=== PATIENT | female | born 1990 | race Caucasian/White ===

== ENCOUNTER 2019-12-17 13:41 | Outpatient (REF) | payer BC, SELFPAY ==
[2019-12-17 14:02] LABS: COVID-19 Test Negative (Negative)
== END 2019-12-17 13:42 | disposition home or self-care (01) ==
LOC: HO.LAB 13:41
PROVIDERS: Visit Provider Internal Medicine
DX: Z20.828 Contact with and (suspected) exposure to other viral communicable diseases (principal)
CPT/HCPCS: 87635

== ENCOUNTER 2019-12-24 06:03 | Outpatient (REF) | payer BC, SELFPAY ==
[2019-12-24 06:25] LABS: COVID-19 Test Negative (Negative)
== END 2019-12-24 06:04 | disposition home or self-care (01) ==
LOC: HO.LAB 06:03
PROVIDERS: Visit Provider Internal Medicine
DX: Z20.828 Contact with and (suspected) exposure to other viral communicable diseases (principal)
CPT/HCPCS: 87635

== ENCOUNTER 2019-12-26 07:44 | Outpatient (REF) | payer BC, SELFPAY ==
[2019-12-26 08:16] LABS: COVID-19 Test Negative (Negative)
== END 2019-12-26 07:45 | disposition home or self-care (01) ==
LOC: HO.LAB 07:44
PROVIDERS: Visit Provider Internal Medicine
DX: Z20.828 Contact with and (suspected) exposure to other viral communicable diseases (principal)
CPT/HCPCS: 87635

== ENCOUNTER 2020-01-02 03:33 | Outpatient (REF) | payer BC, SELFPAY ==
[2020-01-02 05:06] LABS: SARS COV2 PCR INHOUSE NEGATIVE (Negative)
== END 2020-01-02 03:34 | disposition home or self-care (01) ==
LOC: HO.LAB 03:33
PROVIDERS: Visit Provider Internal Medicine
DX: Z20.828 Contact with and (suspected) exposure to other viral communicable diseases (principal)
CPT/HCPCS: U0003

== ENCOUNTER 2020-02-19 13:06 | Outpatient (REF) | payer BC, OTHER, SELFPAY ==
[2020-02-19 13:56] LABS: COVID-19 Test Negative (Negative)
== END 2020-02-19 13:07 | disposition home or self-care (01) ==
LOC: HO.EMPCOV 13:06
PROVIDERS: Visit Provider Internal Medicine
DX: Z20.828 Contact with and (suspected) exposure to other viral communicable diseases (principal)
CPT/HCPCS: 87635; C9803

== ENCOUNTER → 2020-04-11 15:47 | Outpatient (BNVA) | payer BC, SELFPAY | PROVIDERS: PCP Internal Medicine; Visit Provider Advanced Practice Midwife ==

== ENCOUNTER 2020-04-12 23:36 | Outpatient (REF) | payer BC, SELFPAY ==
[2020-04-13 01:18] LABS: Imm Gran Abs Auto 0.03 X10*3/uL (0.00-0.03); Imm Gran Pct Auto 0.2 % (0.0-0.4); MANUAL DIFF FLAG SCAN; PLT CLUMP 1; Red Cell Distribution Width 13.4 % (11.0-16.0); SCAN SMEAR FLAG 1
[2020-04-13 01:20] LABS: Basophils Percent Auto 0.3 % (0-2); Eosinophils Absolute Auto 0.2 X10*3/uL (0.0-0.4); Eosinophils Percent Auto 1.2 % (0-4); Hematocrit 39.9 % (37-47); Hemoglobin 12.6 g/dl (12.0-16.0); Lymphocytes Absolute Auto 2.6 X10*3/uL (1.2-4.9); Lymphocytes Percent Auto 20.7 % (20-40); Mean Corpuscular HGB Conc 31.6 g/dl (31.0-35.0); Mean Corpuscular Hemoglobin 27.9 pg (27.0-33.0); Mean Corpuscular Volume 88.3 fL (80-98); Mean Platelet Volume 10.6 fL (9.4-12.3); Monocytes Absolute Auto 0.5 X10*3/uL (0.1-1.2); Monocytes Percent Auto 4.1 % (2-11); Neutrophils Percent Auto 73.5 % (45-73); Platelet Count 278 X10*3/uL (160-400); Red Blood Count 4.52 X10*6/uL (4.20-5.50)
[2020-04-13 01:27] LABS: White Blood Count 12.3 X10*3/uL (4.8-10.8)
[2020-04-13 01:33] LABS: Alanine Aminotransferase 32 U/L (0-31); Albumin Level 4.4 g/dL (3.5-5.0); Alkaline Phosphatase 86 U/L (39-117); Anion Gap 16 (12-20); Aspartate Amino Transferase 20 U/L (5-31); Bilirubin Total 0.4 mg/dL (0.0-1.0); Blood Urea Nitrogen 9 mg/dL (9-16); Calcium 9.1 mg/dL (8.4-10.2); Carbon Dioxide 24 mmol/L (22-29); Chloride 102 mmol/L (96-108); Cholesterol 179 mg/dL; Estimated Glomerular Filt Rate > 60; Glucose Fasting 88 mg/dL (60-99); HDL Cholesterol 31 mg/dL; LDL Cholesterol Calculated 130 mg/dl; Potassium 3.9 mmol/L (3.3-5.1); Sodium 138 mmol/L (135-145); Total Protein 7.9 g/dL (6.5-8.0); Triglycerides 92 mg/dL
[2020-04-13 01:50] LABS: SLIDE REVIEW VERIFIED
[2020-04-17 14:07] LABS: Vitamin D 25-OH, D2 <4 ng/mL; Vitamin D 25-OH, D3 10 ng/mL; Vitamin D 25-OH, Total 10 ng/mL (30-100)
== END 2020-04-12 23:37 | disposition home or self-care (01) ==
LOC: HO.LAB 23:36
PROVIDERS: PCP Internal Medicine; Visit Provider Internal Medicine
DX: E55.9 Vitamin D deficiency, unspecified (principal); E66.01 Morbid (severe) obesity due to excess calories; E78.5 Hyperlipidemia, unspecified; D72.829 Elevated white blood cell count, unspecified
CPT/HCPCS: 36415; 80053; 80061; 82306; 85025

== ENCOUNTER 2020-04-29 08:59 | Outpatient (REF) | payer BC, SELFPAY ==
[2020-04-30 18:07] LABS: C. trachomatis RNA TMA NOT DETECTED (NOT DETECTED); N. gonorrhoeae RNA TMA NOT DETECTED (NOT DETECTED)
== END 2020-04-29 09:00 | disposition home or self-care (01) ==
LOC: HO.LAB 08:59
PROVIDERS: PCP Internal Medicine; Visit Provider Advanced Practice Midwife
DX: Z30.433 Encounter for removal and reinsertion of intrauterine contraceptive device (principal); Z32.02 Encounter for pregnancy test, result negative
CPT/HCPCS: 36415; 58300; 58301; 81025; 87491; 87591; J7298

== ENCOUNTER → 2020-05-27 08:24 | Outpatient (BNVA) | payer BC, SELFPAY | PROVIDERS: PCP Internal Medicine; Visit Provider Obstetrics & Gynecology ==

== ENCOUNTER 2021-03-18 20:56 | Outpatient (REF) | payer BC, SELFPAY ==
[2021-03-18 21:57] LABS: Influenza A PCR NEGATIVE (Negative); Influenza B PCR NEGATIVE (Negative); Resp Syncy Virus RNA Qual PCR NEGATIVE (Negative); SARS COV2 PCR INHOUSE NEGATIVE (Negative)
== END 2021-03-18 20:57 | disposition home or self-care (01) ==
LOC: HO.LAB 20:56
PROVIDERS: PCP Internal Medicine; Visit Provider Internal Medicine
DX: Z20.822 Contact with and (suspected) exposure to COVID-19 (principal); R51.9 Headache, unspecified
CPT/HCPCS: 0241U

== ENCOUNTER 2022-09-06 09:29 | Outpatient (REF) | payer OTHER, SELFPAY | END 2022-09-06 09:30 | disposition home or self-care (01) | LOC: HO.LAB 09:29 | PROVIDERS: PCP Internal Medicine; Visit Provider Nurse Practitioner Family | DX: Z00.00 Encounter for general adult medical examination without abnormal findings (principal) | CPT/HCPCS: 36415; 80053; 80061; 82306; 82607; 82746; 84443; 85025 ==

== ENCOUNTER 2022-09-07 15:45 | Outpatient (REF) | payer OTHER, SELFPAY ==
--- NOTE | ~2022-09-07 | US_ITS ---
EXAMINATION: US THYROID CLINICAL INFORMATION: Nontoxic goiter, unspecified. COMPARISON: None available. TECHNIQUE: Linear transducer grayscale and color Doppler examination with attention to the region of the thyroid. FINDINGS: SIZE: Measurements of the thyroid lobes and nodules are given in sagittal, anteroposterior and transverse dimensions respectively. Right Thyroid Lobe: 5.7 x 1.6 x 1.9 cm, volume 9.1 mL. Parenchyma: The gland echotexture is homogeneous. Thyroid vascularity is normal. Left Thyroid Lobe: 5.4 x 1.0 x 1.9 cm, volume 5.4 mL. Parenchyma: The gland echotexture is homogeneous. Thyroid vascularity is normal. Isthmus: 0.3 cm in maximum AP dimension. Estimated total number of nodules greater than or equal to 1 cm: 0. Upper Marker nodules are described as follows: 1. Location: Left inferior lateral. Size: 0.5 x 0.4 x 0.4 cm, volume 0.05 mL. Nodule characteristics: Composition: Cystic(0). ACR TI-RADS total points: 0 ACR TI-RADS category: 1 2. Location: Left inferior medial. Size: 0.7 x 0.3 x 0.7 cm, volume 0.09 mL. Nodule characteristics: Composition: Cystic(0). ACR TI-RADS total points: 0 ACR TI-RADS category: 1 NODES: Borderline and mildly enlarged cervical nodes measuring up to 2.9 x 1.0 x 1.4 cm on the right and 2.9 x 1.2 x 2.3 cm on the left. US/US thyroid IMPRESSION: Borderline and mildly enlarged cervical nodes the largest on the left measuring 2.9 x 1.2 cm. Recommend clinical correlation and consider further follow up with tissue sampling of the largest node versus imaging follow-up to ensure stability and/or resolution if clinically suspected to be reactive lymphadenopathy. No suspicious thyroid nodule or thyroid nodule warranting follow-up. ACR TI-RADS RECOMMENDATION REFERENCE: Ultrasound-guided fine-needle aspiration, followup ultrasound, no further follow up. * TR1 (0 point) and TR2 (2 points): No FNA or follow up. * TR3 (3 points): FNA if more than or equal to 2.5 cm in maximum dimension, followup ultrasound in 1, 3 and 5 years if 1.5 to 2.4 cm in maximum dimension. * TR4 (4-6 points): FNA if more than or equal to 1.5 cm in maximum dimension, followup ultrasound in 1, 2, 3 and 5 years if 1 to 1.4 cm in maximum dimension. * TR5 (more than or equal to 7 points): FNA if more than or equal to 1 cm in maximum dimension, followup ultrasound every year for 5 years if 0.5 to 0.9 cm in maximum dimension. * TR3, TR4 or TR5 nodules that are below the size threshold for followup receive no follow up.
== END 2022-09-07 15:46 | disposition home or self-care (01) ==
LOC: HO.US 15:45
PROVIDERS: Visit Provider Nurse Practitioner Family
DX: E04.9 Nontoxic goiter, unspecified (principal)
CPT/HCPCS: 76536

== ENCOUNTER 2022-09-19 09:27 | Outpatient (AMB) | payer OTHER, SELFPAY ==
[2022-09-19 09:38] VITALS: BP 130/72; PULSE 71; BMI 42.9
--- NOTE | 2022-09-19 09:38 | MHC.OFFVIS ---
Intake Vital Signs 09/19/22 09:38 Height 5 ft 10 in Weight 299 lb BMI 42.9 BP 130/72 Blood Pressure Location Rt brachial Position Sitting Pulse 71 Intake Visit Reasons: enlarged cervical nodes, possible Bx Intake Note: This patient presents for an assessment for enlarged cervical nodes, possible biopsy. Patient c/o; denies dysphagia, denies pain. Naturopathic Physician Required: No Accompanied by: Self / Same As Patient Allergies vancomycin Allergy (Mild, Verified 09/19/22 09:43) Rash Medication List - Last Reconciled 09/19/22 by John Fortune MD cholecalciferol (vitamin D3) 25 mcg PO DAILY levonorgestrel (Mirena) intrauterine multivitamin 1 tab PO DAILY HPI enlarged cervical nodes, possible Bx HPI Details 32-year-old female referred for enlarged lymph nodes on ultrasound. She had a thyroid ultrasound last month rule out a goiter. This was ordered by her primary care physician. This showed borderline and mildly enlarged cervical lymph nodes, measuring up to 2.9 x 1.0 x 1.4 cm on the right and 2.9 x 1.2 x 2.3 cm on the left. She was therefore referred to me. She otherwise denies any significant lymphadenopathy. She denies any fever, chills or night sweats. She does states she has chronic leukocytosis for over 10 years now. She denies any recent sore throat, oral lesions, dental caries, or ulcers in the mouth. [facility] Medical History (Updated 09/19/22 @ 09:59 by John Fortune MD) Cervical lymphadenopathy Goiter Hypovitaminosis D Leukocytosis Morbid obesity Physical exam Right upper quadrant abdominal pain Surgical History H/O arthroscopy of left knee History of wisdom tooth extraction Family History Father No problems noted. Mother Hypertension Social History Housing: Apartment Alcohol intake: current Alcohol intake frequency: holidays/special occasions only Patient Tobacco Use Status: Never used Tobacco e-Cigarette/Vaping Use: Never Used Second Hand Smoke Exposure: No service: No Current occupational status: employed Current occupational exposures/hazards: No Gender identity: Female Cognitive needs: No Hearing needs: No Vision needs: No Female Reproductive History Menstrual Age of Menarche: 15 Review of Systems Const Denies chills and Denies fever(s) Card Denies chest pain, Denies dyspnea and Denies dyspnea on exertion Resp Denies cough, Denies dyspnea and Denies dyspnea on exertion GI Denies hematochezia and Denies change in bowel habits Denies hematuria Musc Denies back pain and Denies limited range of motion Neuro Denies focal weakness and Denies convulsions Psych Denies depression and Denies mood swings Physical Exam Vital Signs: Last Vital Signs Pulse 71 09/19/22 09:38 BP 130/72 09/19/22 09:38 BMI result Body Mass Index 42.9 Const Other: With obesity General: comfortable and no acute distress Orientation/consciousness: patient oriented x3 Neck Other: No palpable enlarged lymph nodes, thyroid does not appear to be enlarged, nonnodular, no masses in the oral cavity, no ulcers, no dental caries Resp Auscultation: clear to auscultation bilaterally Cardio Rhythm: regular rhythm GI Palpation (GI): Soft to palpation, nontender and no guarding Neuro General: patient oriented x3 Assessment & Plan Assessment & Plan (1) Cervical lymphadenopathy: Code(s): R59.0 - Localized enlarged lymph nodes Plan: She has borderline enlarged cervical lymph nodes as described above on ultrasound. There is palpable lymph node that is significantly enlarged. There are no oral ulcers, or any evidence of any infection or inflammation in the oral cavity. These lymph nodes appear to be reactive. I told her that I would not proceed with any excision or lymph node biopsy at this time. I would however recommend repeating the ultrasound in about 6 months as a follow-up. I emphasized this to her. I did tell her to do self examination of the neck regularly and to come back to the office earlier if she feels any enlarged lymph node She is comfortable with the plan. Coding Level of Care Code New Pt Level 3 (00064) Diagnoses Cervical lymphadenopathy R59.0
== END 2022-09-19 10:03 | disposition home or self-care (01) ==
PROVIDERS: PCP Internal Medicine; Visit Provider Surgery
DX: R59.0 Localized enlarged lymph nodes (principal)
CPT/HCPCS: 99203

== ENCOUNTER → 2022-09-19 09:27 | Outpatient (BNVA) | payer OTHER, SELFPAY | PROVIDERS: PCP Internal Medicine; Visit Provider Surgery ==

== ENCOUNTER 2022-10-10 10:48 | Outpatient (AMB) | payer OTHER, SELFPAY ==
--- NOTE | 2022-10-10 10:49 | A.OFFPC_ITS ---
Vital Signs 10/10/22 10:50 Height 5 ft 10 in Weight 292 lb BMI 41.9 BP 116/72 Blood Pressure Location Lt brachial Position Sitting Pulse 77 Pulse Source Pulse Oximeter Temp Source Skin Pulse Oximetry (%) 99 Oxygen Delivery Method Room Air Intake Visit Reasons: Lump on Right Breast Intake Note: pt states lump on right breast X1 month, pt states tenderness Hand Bunch Maker Required: No Allergies vancomycin Allergy (Mild, Verified 10/10/22 10:58) Rash Medication List - Last Reconciled 10/10/22 by SANDOR Murray cholecalciferol (vitamin D3) 25 mcg PO DAILY levonorgestrel (Mirena) intrauterine multivitamin 1 tab PO DAILY Tobacco use date assessed: 10/10/22 HPI Lump on Right Breast HPI Details Patient is a 32-year-old female who presents today with lump right breast for the past 1 month which is tender. Patient of Dr. Jorge. Patient denies any breast lumps in the past. She denies family history of breast cancer. Reports not having menstruation due to IUD, although reports bloody vaginal discharge 09/01/2022 for 1 day. In addition, patient reports that she pierced her both nipples 8 years ago, she reports that from right nipple piercing areas she did have bloody discharge about 3 weeks ago, now she has mild crusting on 1 of the side of the pierced area on right breast. No fever or chills. [facility] Medical History Cervical lymphadenopathy Goiter Hypovitaminosis D Leukocytosis Morbid obesity Physical exam Right upper quadrant abdominal pain Surgical History H/O arthroscopy of left knee History of wisdom tooth extraction Family History Father No problems noted. Mother Hypertension Social History Housing: Apartment Alcohol intake: current Alcohol intake frequency: holidays/special occasions only Patient Tobacco Use Status: Never used Tobacco e-Cigarette/Vaping Use: Never Used Second Hand Smoke Exposure: No service: No Current occupational status: employed Current occupational exposures/hazards: No Gender identity: Female Cognitive needs: No Hearing needs: No Vision needs: No Female Reproductive History Menstrual Age of Menarche: 15 Questionnaire PHQ-9 Over the last 2 weeks, how often have you been bothered by any of the following problems? 1. Little interest or pleasure in doing things: not at all 2. Feeling down, depressed, or hopeless: not at all 3. Trouble falling or staying asleep, or sleeping too much: not at all 4. Feeling tired or having little energy: not at all 5. Poor appetite or overeating: not at all 6. Feeling bad about yourself - or that you are a failure or have let yourself or your family down: not at all 7. Trouble concentrating on things, such as reading the newspaper or watching television: not at all 8. Moving or speaking so slowly that other people could have noticed. Or the opposite - being so fidgety or restless that you have been moving around a lot more than usual: not at all 9. Thoughts that you would be better off or of hurting yourself in some way : not at all Total score: 0 Depression Screening Interpretation: Negative 35031 - PHQ-9 Billing: Yes Source: Developed by Drs. Marck Kang, Milton Crabtree and colleagues, with an educational shun from [employer]. Thrive Questionnaire Date Thrive assessed: 08/30/22 AUDIT C Alcohol Use Questionnaire (AUDIT-C) 1. How often do you have a drink containing alcohol?: Monthly or less 2. How many drinks containing alcohol do you have on a typical day when you are drinking?: 1 or 2 3. How often do you have six or more drinks on one occasion?: Never Total Score: 1 Score Reviewed/Action Taken: No SAM-7 AMB Questionnaire SAM-7 Date SAM - 7 assessed: 08/30/22 Source: Developed by Drs. Marck Kang, Milton Crabtree and colleagues, with an educational shun from [employer]. Review of Systems Const Denies body aches, Denies chills, Denies fever(s) and Denies headache(s) Eyes Denies change in vision ENT Denies dizziness, Denies otalgia, Denies headache(s), Denies nasal discharge, Denies sinus pain and Denies sore throat Card Denies chest pain, Denies edema, Denies lightheadedness and Denies dyspnea Resp Denies cough, Denies dyspnea and Denies wheezing GI Denies abdominal pain Denies dysuria Musc Denies myalgias Skin/Breast Reports as per HPI and Denies rash Neuro Denies dizziness and Denies headache(s) Aller/Immun Denies wheezing Physical exam (Primary Care) Vital Signs: Last Vital Signs Pulse 77 10/10/22 10:50 BP 116/72 10/10/22 10:50 Pulse Ox 99 10/10/22 10:50 Oxygen Delivery Method Room Air 10/10/22 10:50 BMI result Body Mass Index 41.9 Tobacco/Smoking Status: Tobacco use Status Tobacco use date assessed 10/10/22 10/10/22 10:56 Patient Tobacco Use Status Never used Tobacco 10/10/22 10:56 e-Cigarette/Vaping Use Never Used 10/10/22 10:56 PHQ-9: PHQ-9 Score PHQ-9: Total score 0 10/10/22 10:56 Depression Screening Interpretation: Negative Thrive Assessment: Date of Thrive Assessment Date Thrive assessed 08/30/22 10/10/22 10:56 Const General: cooperative and no acute distress Orientation/consciousness: patient oriented x3 HENMT Head: Yes normocephalic and Yes atraumatic Mouth: oropharynx normal and moist mucous membranes Throat: Yes posterior oropharynx normal Eyes General: appearance normal, both eyes and all related structures Neck Neck: Yes normal visual inspection, Yes full ROM and Yes lymphadenopathy (R>L, followed by General surgery) Chest Breast/axilla inspection: normal inspection of the breasts and normal inspection of the axillae Breast/axilla palpation: normal palpation of the breasts (Left) and normal palpation of the axillae Chest/axillae images: 1. Right breast 09:00 o'clock tenderness to palpation, no palpable lump, no signs of infection noted 2. Right nipple horizontal piercing noted, medial side with very mild crusting, no signs of infection noted, nipple nontender, no need for antibiotic Resp Effort & Inspection: normal respiratory effort and able to speak in complete sentences Auscultation: clear to auscultation bilaterally, no crackles, no rales, no rhonchi and no wheezes Cardio Rate: regular rate Rhythm: regular rhythm Heart sounds: S1 normal heart sound present and S2 normal heart sound present GI Auscultation: normal bowel sounds Skin General skin exam: no rashes or lesions noted Neuro General: patient oriented x3 Gait exam (Neuro): Normal gait present Extrem General: Yes full ROM and No edema Assessment and Plan Assessment & Plan (1) Lump of right breast: Code(s): N63.10 - Unspecified lump in the right breast, unspecified quadrant Plan: Right breast 09:00 o'clock tenderness to palpation, no palpable lump, no signs of infection noted. Will obtain mammogram and ultrasound of right breast. Patient agreed with the plan. Will notify of the results. Orders: Orders US breast RT complete Today N63.10 - Unspecified lump in the right breast, unspecified quadrant MM diagnostic mammo unilat RT Today N63.10 - Unspecified lump in the right breast, unspecified quadrant Coding Level of Care Code Est Pt Level 3 (32779) Diagnoses Lump of right breast N63.10
[2022-10-10 10:50] VITALS: BP 116/72; PULSE 77; O2SAT 99; BMI 41.9
== END 2022-10-10 11:14 | disposition home or self-care (01) ==
PROVIDERS: PCP Internal Medicine; Visit Provider Nurse Practitioner Family
DX: N63.11 Unspecified lump in the right breast, upper outer quadrant (principal)
CPT/HCPCS: 99213

== ENCOUNTER 2022-10-31 12:46 | Outpatient (REF) | payer OTHER, SELFPAY ==
--- NOTE | ~2022-10-31 | MM_ITS ---
EXAMINATION: MM DIAGNOSTIC DIGITAL BREAST TOMOSYNTHESIS, BILATERAL US BREAST LIMITED, BILATERAL MAMMOGRAPHY: CLINICAL INFORMATION: 32-year-old female complaining of right sided palpable abnormality in the approximate 9:00 axis of the right breast, mid to anterior one third, which was marked by the technologist. Patient also complaining of mild tenderness in the 9:00 region. COMPARISON: Mammography: None. Baseline exam. TECHNIQUE: Digital breast tomosynthesis is performed in both the craniocaudal and mediolateral oblique views along with computer-aided detection (CAD). Synthesized 2D images are generated from the tomosynthesis. FINDINGS: There are scattered areas of fibroglandular density (ACR BI-RADS breast composition Category b). In the right breast, there are no suspicious masses, suspicious grouped calcifications, or areas of architectural distortion identified. There is no mammographic abnormality near are subjacent to the marker at the approximate 9:00 axis of the mid to anterior right breast in the region of palpable concern. No abnormality in the 9:00 axis to correlate with breast pain. Within the left breast, there is an 8 mm oval circumscribed isodense mass in the 1-2 o'clock axis, approximately 8 cm from the nipple. This may represent a small cyst or lymph node. This will be evaluated with ultrasound. There is otherwise no suspicious masses, suspicious grouped calcifications, or areas of architectural distortion within the left breast. ULTRASOUND: CLINICAL INFORMATION: Right breast palpable abnormality and tenderness 9:00 axis. Left breast circumscribed 8mm oval isodense mass 1-2 o'clock axis, 8 cm from the nipple. COMPARISON: None TECHNIQUE: Targeted sonographic evaluation of both breasts was performed using a high frequency linear transducer. Attention was paid to the palpable focus of concern with pain in the 9:00 axis of the right breast, and the oval isodense 8 mm mass in the 1-2 o'clock axis of the left breast. Selected archived documentation. FINDINGS: RIGHT BREAST: There is a mixture of fatty and fibroglandular tissue. No suspicious mass is seen. There is no pathologic acoustic shadowing. There is no sonographic correlate to the focus of palpable concern or pain. LEFT BREAST: There is a mixture of fatty and fibroglandular tissue. No suspicious mass is seen. There is no pathologic acoustic shadowing. There is no sonographic correlate identified to the oval 8mm isodense mass. This likely represents a benign lymph node, and 6 month follow-up mammography recommended. MM/MM tomosynthesis diagnostic BI IMPRESSION: There are no suspicious findings for malignancy in either breast. No mammographic or sonographic correlate to the right breast focus of palpable concern and pain in the 8-9 o'clock axis, mid to anterior one third. Recommend clinical management of the patient's symptomatology. Decision to biopsy a palpable focus with no imaging correlation must be made on a clinical basis. Oval isodense 8 mm left breast mass at the 1-2 o'clock axis, 8 cm from the nipple, has no definite ultrasonographic correlate, most likely represents a benign process such as a lymph node or small fibroadenoma. Six-month interval follow-up left breast mammography to include standard 3-D views recommended to ensure stability. Follow-up ultrasound is not suggested unless indicated by the reading radiologist. Findings and recommendations discussed with the patient. OVERALL ASSESSMENT: Mammography: BI-RADS 3 - Probably benign finding(s) - 6 month follow-up suggested Ultrasound: BI-RADS 3 - Probably benign finding(s) - 6 month follow-up suggested RECOMMENDATION: 6 Month F/U This patient's information was entered into a reminder system with a target due date for their next mammogram.
== END 2022-10-31 12:47 | disposition home or self-care (01) ==
LOC: HO.MAMMO 12:46
PROVIDERS: PCP Internal Medicine; Visit Provider Nurse Practitioner Family
DX: N63.15 Unspecified lump in the right breast, overlapping quadrants (principal)
CPT/HCPCS: 76642; 77062; 77066

== ENCOUNTER → 2022-10-31 13:00 | Outpatient (BNV) | payer OTHER, SELFPAY | PROVIDERS: PCP Internal Medicine; Visit Provider Radiology Diagnostic Radiology | DX: N63.11 Unspecified lump in the right breast, upper outer quadrant (principal) | CPT/HCPCS: 76642; 77062; 77066 ==

== ENCOUNTER 2022-12-26 12:46 | Outpatient (REF) | payer OTHER, SELFPAY ==
[2022-12-27 13:39] LABS: BV Int Neg Control Negative (Negative); BV Int Pos Control Positive (Positive)
[2022-12-28 21:13] LABS: HPV mRNA E6/E7 rflx Not Detected (Not Detected)
== END 2022-12-26 12:47 | disposition home or self-care (01) ==
LOC: HO.LNP 12:46
PROVIDERS: PCP Internal Medicine; Visit Provider Advanced Practice Midwife
DX: Z01.419 Encounter for gynecological examination (general) (routine) without abnormal findings (principal); Z11.51 Encounter for screening for human papillomavirus (HPV); Z20.2 Contact with and (suspected) exposure to infections with a predominantly sexual mode of transmission
CPT/HCPCS: 87480; 87510; 87624; 87660; 88142

== ENCOUNTER 2022-12-26 12:46 | Outpatient (AMB) | payer OTHER, SELFPAY ==
--- NOTE | 2022-12-26 12:51 | A.OFFVIS_ITS ---
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 Scribed for EHSAN Koo by Jessi Larsen, medical coder, on 12/26/2022 at 1:47 pm, EST. Video Player Mechanic: Video Player Mechanic Present (Georgette) Allergies vancomycin Allergy (Mild, Verified 12/26/22 12:52) Rash HPI HPI Comments History of Present Illness Details She is a premenopausal woman presenting for annual examination. Doing well with no concerns. She tries to eat healthy and stays active with exercise. She denies vaginal itching and irritation. STI screening offered; she accepts. Denies family history of breast, ovarian or colon cancer. Last pap smear 2018; abnormal at [facility]not found in records today. Colpo 2014 normal since. Last mammogram on 10/31/2022 Confirms facial hair growth. Cycles prior to IUD were excessive cramping and heavy bleeding. Her PCP suggested that she be seen by endocrinology to be done next year. She states next year she will have her A1c taken for possible glucose intolerance. 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 [facility] Medical History Cervical lymphadenopathy Goiter Right upper quadrant abdominal pain Physical exam Leukocytosis Morbid obesity Hypovitaminosis D Surgical History H/O arthroscopy of left knee History of wisdom tooth extraction Family History Father No problems noted. Mother Hypertension Social History Housing: Apartment Alcohol intake: current Alcohol intake frequency: a few times a month Patient Tobacco Use Status: Never used Tobacco e-Cigarette/Vaping Use: Never Used Second Hand Smoke Exposure: No service: No Current occupational status: employed Current occupational exposures/hazards: No Sexual orientation: Straight/Heterosexual Gender identity: Female Cognitive needs: No Hearing needs: No Vision needs: No Female Reproductive History Menstrual Age of Menarche: 15 control method: progestin IUCD (Mirena 04/24) Total pregnancies: 0 Review of Systems Const All systems reviewed & are unremarkable except as noted in HPI and below Physical Exam Vital Signs: Last Vital Signs BP 100/68 12/26/22 12:52 BMI result Body Mass Index 41.3 Const General: cooperative, healthy appearing, no acute distress, well developed and alert Nutritional Appearance: obese Orientation/consciousness: patient oriented x3 HEENT Head: Yes normal to inspection Eyes General: appearance normal, both eyes and all related structures Neck Neck: Yes normal visual inspection Thyroid: Thyroid normal Chest Chest palpation & inspection: normal inspection of the chest Breast/axilla inspection: normal inspection of the breasts (no puckering, dimpling, peau de orange, retraction, discharge, masses) Breast/axilla palpation: normal palpation of the breasts Resp Effort & Inspection: normal respiratory effort GI Inspection: Yes normal to inspection Palpation (GI): Soft to palpation Rectal Exam - Female: deferred General: Yes bladder normal to inspection and Yes bladder normal to palpation External Female Exam: normal external appearance and normal appearance of the urethra Speculum Exam - Vagina: normal appearance of the vagina and normal palpation Speculum Exam - Cervix: normal palpation and Other cervical findings present (IUD stings were normal in length.) Bimanual exam- vagina & uterus: normal bimanual exam, normal palpation, uterine size normal, bladder normal to palpation and normal palpation Bimanual Exam- Adnexa, other: normal adnexae and no masses Skin General skin exam: no rashes or lesions noted Neuro General: patient oriented x3 Cognition (Neuro): normal cognition Extrem General: Yes normal to inspection Psych Attitude: cooperative Thought process: Normal thought process present Assessment & Plan Assessment & Plan (1) Encounter for annual routine gynecological examination: Code(s): Z01.419 - Encounter for gynecological examination (general) (routine) without abnormal findings Plan: The office will send a request for her prior pap smear and Colpo results. BV testing and GC/CT panel today. STD blood work ordered. Await results and treat accordingly. Discussed: Hormone lab work up, however due to her having an IUD in place I educated her this could cause her to have incorrect labs values. She would like to defer at this time, consider waiting for Endocrine workup. Current recommendations for pap smears per ASCCP guidelines. Sign release for pap/colpo bx records. Breast awareness and periodic self breast exams, follow up if any concerns with her breast Maintaining a healthy lifestyle including a well balanced diet and routine exercise. Encouraged condom use for STD and prevention. All of her questions and concerns were addressed to the best of my ability She will return in one year for AG. 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 Orders: Orders CT NG by PCR 12/26/22 Z20.2 - Contact with and (suspected) exposure to infections with a predominantly sexual mode of transmission Pap Smear 12/26/22 Z01.419 - Encounter for gynecological examination (general) (routine) without abnormal findings Hepatitis B Core Antibody 12/26/22 Z20.2 - Contact with and (suspected) exposure to infections with a predominantly sexual mode of transmission HIV Ab/Ag 12/26/22 Z20.2 - Contact with and (suspected) exposure to infections with a predominantly sexual mode of transmission Bacterial Vaginosis Panel 12/26/22 Z20.2 - Contact with and (suspected) exposure to infections with a predominantly sexual mode of transmission Hepatitis C Antibody 12/26/22 Z20.2 - Contact with and (suspected) exposure to infections with a predominantly sexual mode of transmission Syphilis Screen 12/26/22 Z20.2 - Contact with and (suspected) exposure to infections with a predominantly sexual mode of transmission Medications: New valacyclovir (Valtrex) take with onset on of symptoms, take for three days, may repeat dosing per episode prn 500 mg PO BID 30 tabs 1RF Coding Level of Care Code Est Pt Prev Care 18-39y(76403) Diagnoses Encounter for annual routine gynecological examination Z01.419 HSV-1 infection B00.9
[2022-12-26 12:52] VITALS: BP 100/68; BMI 41.3
== END 2022-12-26 13:37 | disposition home or self-care (01) ==
PROVIDERS: PCP Internal Medicine; Visit Provider Advanced Practice Midwife
DX: Z01.419 Encounter for gynecological examination (general) (routine) without abnormal findings (principal); B00.9 Herpesviral infection, unspecified
CPT/HCPCS: 99395

== ENCOUNTER 2022-12-26 13:22 | Outpatient (REF) | payer OTHER, SELFPAY ==
[2022-12-26 18:45] LABS: CT PCR NOT DETECTED (Not Detect.); NG PCR NOT DETECTED (Not Detect.)
[2022-12-27 04:16] LABS: Syphilis Screen Nonreactive (Nonreactive)
[2022-12-27 04:21] LABS: HBc Num1 0.05 S/CO (0.00-0.79); HIV AB/AG Nonreactive (Nonreactive); HIV Num 1 0.04 S/CO (0.00-0.99); Hepatitis B Core Antibody Nonreactive (Nonreactive); ~HepC Num1 0.04 S/CO (0.00-0.79); ~Hepatitis C Antibody Nonreactive (Nonreactive)
== END 2022-12-26 13:23 | disposition home or self-care (01) ==
LOC: HO.LAB 13:22
PROVIDERS: PCP Internal Medicine; Visit Provider Advanced Practice Midwife
DX: Z11.4 Encounter for screening for human immunodeficiency virus [HIV] (principal); Z20.2 Contact with and (suspected) exposure to infections with a predominantly sexual mode of transmission
CPT/HCPCS: 0353U; 86704; 86780; 86803; 87389

== ENCOUNTER 2023-05-07 15:14 | Outpatient (REF) | payer OTHER, SELFPAY ==
--- NOTE | ~2023-05-07 | US_ITS ---
EXAMINATION: US SOFT TISSUE NECK CLINICAL INFORMATION: Enlarged cervical lymph nodes. COMPARISON: Thyroid ultrasound dated 05/07/2023. TECHNIQUE: Ultrasound of the neck soft tissues is performed with high- frequency tanner-scale imaging and color Doppler. FINDINGS: RIGHT NECK SOFT TISSUES: Scattered architecturally normal nodes are present. The nodes show normal fatty hilus, normal cortical thickness, and no cystic change or calcification. No abnormal color flow. The largest node is as follows: Level 2: 3.2 x 1.1 x 1.1 cm. Prior: 2.9 x 0.9 x 1.4 cm. Normal darcy architecture. LEFT NECK SOFT TISSUES: Scattered architecturally normal nodes are present. The nodes show normal fatty hilus, normal cortical thickness, and no cystic change or calcification. No abnormal color flow. The largest nodes are as follows: Level 2: 2.7 x 0.9 x 1.2 cm. Prior: 2.9 x 1.2 x 2.2 cm. Normal darcy architecture. Level 2: 2.8 x 0.9 x 0.8 cm. Prior: Not seen. Normal darcy architecture. US/US extremity nonvascular IMPRESSION: Mildly enlarged bilateral cervical lymph nodes are seen, as detailed. These are nonspecific and should be managed on a clinical basis. If of continued clinical concern, consider short-term follow-up ultrasound imaging in 3-6 months to ensure stability/regression.
== END 2023-05-07 15:15 | disposition home or self-care (01) ==
LOC: HO.US 15:14
PROVIDERS: PCP Internal Medicine; Visit Provider Surgery
DX: R59.0 Localized enlarged lymph nodes (principal)
CPT/HCPCS: 76882

== ENCOUNTER 2023-05-09 10:47 | Outpatient (REF) | payer OTHER, SELFPAY ==
--- NOTE | ~2023-05-09 | MM_ITS ---
EXAMINATION: MM DIAGNOSTIC DIGITAL BREAST TOMOSYNTHESIS, LEFT CLINICAL INFORMATION: Follow-up oval mass left breast 1-2 o'clock o'clock axis, approximately 8 cm from the nipple. COMPARISON: Mammography: Baseline screening 10/31/2022. TECHNIQUE: Digital breast tomosynthesis is performed in both the following views: Full-field left 3-D CC, and MLO x2 views were obtained. Computer-aided diagnosis was used for this study. FINDINGS: There are scattered areas of fibroglandular density (ACR BI-RADS breast composition Category b). Left breast demonstrates a stable 9 mm oval circumscribed mass in the 1-2 o'clock axis, without significant change from the prior exam. There is now a perceived small fatty notch, suggesting this is most likely a benign intramammary lymph node. There is otherwise been no change. There are no suspicious abnormalities in the left breast. No skin or axillary changes. MM/MM tomosynthesis diagnostic LT IMPRESSION: There are no significant changes from prior study. No findings suspicious for malignancy left breast. Stable oval circumscribed 9 mm mass in the 1-2 o'clock axis of the left breast now demonstrates a small fatty hilum and is most likely a benign intramammary lymph node. This remains probably benign. To remain cautious, this will be evaluated in an additional 6 months on mammography when the patient is due for bilateral screening. ASSESSMENT: BI-RADS BI-RADS 3 - Probably benign finding(s) - 6 month follow-up suggested RECOMMENDATION: 6 Month F/U Results were provided to the patient at time of visit by the technologist. This patient's information was entered into a reminder system with a target due date for their next mammogram.
== END 2023-05-09 10:48 | disposition home or self-care (01) ==
LOC: HO.MAMMO 10:47
PROVIDERS: PCP Internal Medicine; Visit Provider Internal Medicine
DX: R92.2 Inconclusive mammogram (principal)
CPT/HCPCS: 77061; 77065

== ENCOUNTER → 2023-05-09 11:00 | Outpatient (BNV) | payer OTHER, SELFPAY | PROVIDERS: PCP Internal Medicine; Visit Provider Radiology Diagnostic Radiology | DX: N60.82 Other benign mammary dysplasias of left breast (principal); R92.322 Mammographic fibroglandular density, left breast | CPT/HCPCS: 77061; 77065 ==

== ENCOUNTER 2023-11-12 12:39 | Outpatient (REF) | payer OTHER, SELFPAY ==
--- NOTE | ~2023-11-12 | US_ITS ---
EXAMINATION: US SOFT TISSUE HEAD/NECK CLINICAL INFORMATION: Localized enlarged lymph nodes. Follow-up mildly enlarged lymph nodes. COMPARISON: Thyroid ultrasound 09/07/2022. TECHNIQUE: Linear transducer grayscale and color Doppler examination of the neck. FINDINGS: RIGHT NECK SOFT TISSUES: Scattered architecturally normal nodes are present. The nodes show normal fatty hilus, normal cortical thickness, and no cystic change or calcification. No abnormal color flow. The largest nodes are as follows: Level 2: 2.6 x 1.1 x 2.1 cm. Prior: 3.2 x 1.1 x 1.1 cm. Normal darcy architecture. Level 2: 2.6 x 0.8 x 1.0 cm. Prior: Not seen. Normal darcy architecture. Level 2: 1.9 x 0.9 x 0.9 cm. Prior: Not seen. Normal darcy architecture. LEFT NECK SOFT TISSUES: Scattered architecturally normal nodes are present. The nodes show normal fatty hilus, normal cortical thickness, and no cystic change or calcification. No abnormal color flow. The largest nodes are as follows: Level 2: 2.8 x 1.2 x 1.5 cm. Prior: 2.7 x 0.9 x 1.2 cm. Normal darcy architecture. Level 2: 2.6 x 1.0 x 1.1 cm. Prior: 2.8 x 0.9 x 0.8 cm. Normal darcy architecture. US/US soft tiss head and/or neck IMPRESSION: 1. There are persistent mildly enlarged bilateral cervical lymph nodes, with normal architectural features. These are nonspecific. Recommend management on a clinical basis. 2. If clinically indicated further evaluation of the neck soft tissues and nodes may be performed with CT soft tissue neck with intravenous contrast. Electronically signed by: Goyo Yepez MD 11/22/2023 09:05 PM EDT
== END 2023-11-12 12:40 | disposition home or self-care (01) ==
LOC: HO.US 12:39
PROVIDERS: PCP Internal Medicine; Visit Provider Surgery
DX: R59.0 Localized enlarged lymph nodes (principal)
CPT/HCPCS: 76536

== ENCOUNTER 2023-11-12 14:13 | Outpatient (REF) | payer OTHER, SELFPAY ==
--- NOTE | ~2023-11-12 | MM_ITS ---
EXAMINATION: MM DIAGNOSTIC DIGITAL BREAST TOMOSYNTHESIS, BILATERAL CLINICAL INFORMATION: 6 month Follow-up (for 1 year total) probably benign oval nodule measuring 9 mm left breast 1-2 o'clock axis, approximately 8 cm from the nipple. Patient also due for bilateral. COMPARISON: Mammography: 05/09/2023, 10/31/2022 (BI-RADS 3). TECHNIQUE: Digital breast tomosynthesis is performed in both the craniocaudal and mediolateral oblique views along with computer-aided detection (CAD). Synthesized 2D images are generated from the tomosynthesis. FINDINGS: There are scattered areas of fibroglandular density (ACR BI-RADS breast composition Category b). In the left breast there is a similar oval 9 mm circumscribed mass in the 1-2 o'clock axis, middle one third, without significant change from the May 09, 2023 exam. This again demonstrates a probable small fatty hilum and is most likely a benign lymph node. It remains probably benign. Otherwise there are no suspicious masses, suspicious grouped calcifications, or areas of architectural distortion in either breast. The parenchymal pattern is stable from prior exams. There is no skin or axillary abnormality. MM/MM tomosynthesis diagnostic BI IMPRESSION: -There are no findings in either breast suspicious for malignancy. -9 mm oval mass with small fatty notch is stable from May 09, 2023 exam, and remains a probably benign intramammary lymph node. To be cautious, one-year follow-up left diagnostic mammogram recommended to ensure stability. ASSESSMENT: BI-RADS BI-RADS 3 - Probably benign finding(s) - 12 month follow-up suggested RECOMMENDATION: 12 month diagnostic follow up Results were provided to the patient at time of visit by the technologist. This patient's information was entered into a reminder system with a target due date for their next mammogram. Electronically signed by: Justen Marr MD 11/12/2023 04:19 PM EDT
== END 2023-11-12 14:14 | disposition home or self-care (01) ==
LOC: HO.MAMMO 14:13
PROVIDERS: PCP Internal Medicine; Visit Provider Internal Medicine
DX: R92.1 Mammographic calcification found on diagnostic imaging of breast (principal)
CPT/HCPCS: 77062; 77066

== ENCOUNTER → 2023-11-12 14:30 | Outpatient (BNV) | payer OTHER, SELFPAY | PROVIDERS: PCP Internal Medicine; Visit Provider Radiology Diagnostic Radiology | DX: N63.25 Unspecified lump in the left breast, overlapping quadrants (principal) | CPT/HCPCS: 77062; 77066 ==

== ENCOUNTER 2023-12-11 13:19 | Outpatient (REF) | payer OTHER, SELFPAY ==
[2023-12-11 15:33] LABS: Blood Urea Nitrogen 13 mg/dL (9-16); Estimated Glomerular Filt Rate > 60
== END 2023-12-11 13:20 | disposition home or self-care (01) ==
LOC: HO.LAB 13:19
PROVIDERS: PCP Internal Medicine; Visit Provider Surgery
DX: R59.0 Localized enlarged lymph nodes (principal)
CPT/HCPCS: 36415; 82565; 84520

== ENCOUNTER 2023-12-11 13:19 | Outpatient (AMB) | payer OTHER, SELFPAY ==
[2023-12-11 13:27] VITALS: BMI 41.1
--- NOTE | 2023-12-11 13:27 | MHC.OFFVIS ---
Vital Signs 12/11/23 13:27 Height 5 ft 10 in Weight 286 lb 9.615 oz BMI 41.1 Intake Visit Reasons: s/p soft tissue US Intake Note: This patient presents for follow-up assessment for Head/neck Ultrasound results. Pt c/o; reports no complaints at this time. 11/12/2023: Head/neck US Binder Roller Required: No Accompanied by: Self / Same As Patient Allergies vancomycin Allergy (Mild, Verified 12/11/23 13:27) Rash Medication List - Last Reconciled 12/11/23 by John Fortune MD cholecalciferol (vitamin D3) 25 mcg PO DAILY levonorgestrel (Mirena) intrauterine multivitamin 1 tab PO DAILY valacyclovir (Valtrex) 500 mg PO BID HPI HPI s/p soft tissue US: Details: She is here for follow-up after ultrasound of her neck for cervical lymphadenopathy. I had seen her in September, incidental findings of mild enlarged lymph nodes after an ultrasound for her thyroid She denies any new complaints. She feels well overall. She denies any fever, chills or night sweats. She denies any systemic symptoms. She denies any oral lesions or dental caries. She had a follow-up ultrasound in November, and is here to discuss this. [facility] Medical History Cervical lymphadenopathy Goiter Right upper quadrant abdominal pain Physical exam Leukocytosis Morbid obesity Hypovitaminosis D Surgical History H/O arthroscopy of left knee History of wisdom tooth extraction Family History Father No problems noted. Mother Hypertension Social History Housing: Apartment Alcohol intake: current Alcohol intake frequency: a few times a month Patient Tobacco Use Status: Never used Tobacco e-Cigarette/Vaping Use: Never Used Second Hand Smoke Exposure: No service: No Current occupational status: employed Current occupational exposures/hazards: No Sexual orientation: Straight/Heterosexual Gender identity: Female Cognitive needs: No Hearing needs: No Vision needs: No Female Reproductive History Menstrual Age of Menarche: 15 Review of Systems Const Denies chills and Denies fever(s) Card Denies chest pain, Denies dyspnea and Denies dyspnea on exertion Resp Denies cough, Denies dyspnea and Denies dyspnea on exertion GI Denies hematochezia and Denies change in bowel habits Denies hematuria Musc Denies back pain and Denies limited range of motion Neuro Denies focal weakness and Denies convulsions Psych Denies depression and Denies mood swings Physical Exam Vital Signs: BMI result Body Mass Index 41.1 Const General: comfortable and no acute distress Orientation/consciousness: patient oriented x3 HEENT Other: No oral lesions, no dental caries Neck Other: Unable to palpate any lymph node Resp Auscultation: clear to auscultation bilaterally Cardio Rhythm: regular rhythm GI Palpation (GI): Soft to palpation, nontender and no guarding Neuro General: patient oriented x3 Assessment & Plan Assessment & Plan (1) Cervical lymphadenopathy: Code(s): R59.0 - Localized enlarged lymph nodes Category: Medical Plan: Her ultrasound from last month shows this right neck level 2 lymph node, 2.6 cm in widest dimension normal architecture. There were other 2 other lymph nodes seen in the area. On the left neck is note of architecturally normal lymph nodes as well at level 2, with largest dimension at 2.8 cm. These lymph nodes did not appear to be significantly changed and are otherwise nonspecific A CT scan of the soft tissue of the neck had been recommended. I will order for this and I will see her again in the office after CT scan to review the findings. She understands the plan well and is comfortable with this Orders: Orders Blood Urea Nitrogen Today R59.0 - Localized enlarged lymph nodes Creatinine Today R59.0 - Localized enlarged lymph nodes CT soft tissue neck w IV con Today R59.0 - Localized enlarged lymph nodes Coding Level of Care Code Est Pt Level 3 (85632) Diagnoses Cervical lymphadenopathy R59.0
== END 2023-12-11 13:44 | disposition home or self-care (01) ==
PROVIDERS: PCP Internal Medicine; Visit Provider Surgery
DX: R59.0 Localized enlarged lymph nodes (principal)
CPT/HCPCS: 99213

== ENCOUNTER 2023-12-31 12:51 | Outpatient (REF) | payer OTHER, SELFPAY ==
[2024-01-01 13:20] LABS: Bacterial Vaginosis PCR NEGATIVE (Negative); Candida Group PCR NOT DETECTED (Not Detect); Candida glab krusei PCR NOT DETECTED (Not Detect); Trichomonas vaginalis PCR NOT DETECTED (Not Detect)
[2024-01-06 15:18] LABS: HPV mRNA E6/E7 Not Detected (Not Detected)
== END 2023-12-31 12:52 | disposition home or self-care (01) ==
LOC: HO.LAB 12:51
PROVIDERS: PCP Internal Medicine; Visit Provider Advanced Practice Midwife
DX: R10.2 Pelvic and perineal pain (principal); Z01.419 Encounter for gynecological examination (general) (routine) without abnormal findings
CPT/HCPCS: 0352U; 36415; 81025; 87624; 88175

== ENCOUNTER 2023-12-31 12:51 | Outpatient (AMB) | payer OTHER, SELFPAY ==
--- NOTE | 2023-12-31 12:58 | A.OFFVIS_ITS ---
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 Doing well with concerns: increased cramping at ?mid cycle and with cycle timing, has random bleeding w/Mirena. She denies any itching or irritation, accepts STD screening testing today. Currently is sexually active new partner in the last 4 months. She tries to eat healthy and stays active with exercise regular, little weight loss noted. Denies family history of breast, ovarian or colon cancer. Last pap smear 2022, negative. Prior Pap 2018, abnormal. History of colposcopy in 2014, no external records available. [facility] Medical History (Updated 12/31/23 @ 13:05 by Alayna Doran CNM) Cervical lymphadenopathy Goiter Right upper quadrant abdominal pain Physical exam Leukocytosis Morbid obesity Hypovitaminosis D Surgical History H/O arthroscopy of left knee History of wisdom tooth extraction Family History Father No problems noted. 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 [employer] Current occupational exposures/hazards: No Sexual orientation: Straight/Heterosexual Gender identity: Female Cognitive needs: No Hearing needs: No Vision needs: No Female Reproductive History Menstrual Age of Menarche: 15 control method: progestin IUCD (Mirena 04/2020) Total pregnancies: 0 Date of last pap smear: 12/26/22 (neg pap and hpv) History of abnormal pap smear: Yes (hx abn pap and colpo 2014) Review of Systems Const All systems reviewed & are unremarkable except as noted in HPI and below Reports as per HPI Eyes Reports no additional complaints ENT Reports no additional complaints Card Reports no additional complaints Resp Reports no additional complaints GI Reports as per HPI and Reports no additional complaints Reports as per HPI Musc Reports no additional complaints Skin/Breast Reports as per HPI Neuro Reports no additional complaints Psych Reports no additional complaints Endo Reports no additional complaints Ronald/Lymph Reports no additional complaints Aller/Immun Reports no additional complaints Physical Exam Vital Signs: Last Vital Signs BP 120/70 12/31/23 12:59 BMI result Body Mass Index 45.6 Const General: cooperative, healthy appearing, no acute distress, well developed and alert Orientation/consciousness: patient oriented x3 HEENT Head: Yes normal to inspection Eyes General: appearance normal, both eyes and all related structures Neck Neck: Yes normal visual inspection Thyroid: Thyroid normal Chest Chest palpation & inspection: normal inspection of the chest and other (no puckering, dimpling, peau de orange, retraction, discharge, masses) Breast/axilla inspection: normal inspection of the breasts Breast/axilla palpation: normal palpation of the breasts Resp Effort & Inspection: normal respiratory effort GI Inspection: Yes normal to inspection Palpation (GI): Soft to palpation Rectal Exam - Female: deferred General: Yes bladder normal to palpation External Female Exam: normal external appearance and normal appearance of the urethra Speculum Exam - Vagina: normal appearance of the vagina, normal palpation and normal vaginal discharge Speculum Exam - Cervix: normal palpation and Other cervical findings present (IUD strings present at the os) Bimanual exam- vagina & uterus: normal bimanual exam, normal palpation, uterine size normal, bladder normal to palpation, normal palpation and non-tender Bimanual Exam- Adnexa, other: no masses Skin General skin exam: no rashes or lesions noted Rashes: no rashes Neuro General: patient oriented x3 Cognition (Neuro): normal cognition Extrem General: Yes normal to inspection Psych Attitude: cooperative Thought process: Normal thought process present Results AMB Test Urine AMB Test Urine Negative Last Edit by LUIS Freeman on 12/31/23 13:51 Results Reviewed Results Reviewed: Laboratory Last Values Tst Clinic Negative 12/31/23 13:49 Assessment & Plan Assessment & Plan (1) Encounter for well woman exam with routine gynecological exam: Code(s): Z01.419 - Encounter for gynecological examination (general) (routine) without abnormal findings Category: Medical (2) Pelvic cramping: Code(s): R10.2 - Pelvic and perineal pain Plan Discussed: Current recommendations for pap smears per ASCCP guidelines. Pap obtained if negative continue follow up at 5 year interval. Breast awareness and periodic breast exams. Maintain a healthy lifestyle including a well balanced diet and routine exercise. Speak to her primary care regarding weight loss concerns. Use condoms for STI and prevention. Pelvic ultrasound and cervical cultures. Follow up in person for test results and plan of care. Report any significant changes or pelvic pain. Patient verbalizes understanding and agrees to the plan of care. She was given opportunity to ask questions and all questions were answered to the best of my ability. RTO in one year for annual sports teacher examination. This note is constructed using voice recognition software. While every effort has been made to ensure accuracy, crane mechanic errors may have been included. Orders: Orders HIV Ab/Ag Today R10.2 - Pelvic and perineal pain, Z20.2 - Contact with and (suspected) exposure to infections with a predominantly sexual mode of transmission Hepatitis C Antibody Reflex Today R10.2 - Pelvic and perineal pain, Z20.2 - Contact with and (suspected) exposure to infections with a predominantly sexual mode of transmission Syphilis Screen Today R10.2 - Pelvic and perineal pain, Z20.2 - Contact with and (suspected) exposure to infections with a predominantly sexual mode of transmission Bacterial Vaginosis Panel Today R10.2 - Pelvic and perineal pain CT NG by PCR Today R10.2 - Pelvic and perineal pain PAP + HPV E6/E7 rfx 18/45 Today Z01.419 - Encounter for gynecological examination (general) (routine) without abnormal findings US pelvic and transvaginal Today R10.2 - Pelvic and perineal pain Hepatitis B Core Antibody Today R10.2 - Pelvic and perineal pain, Z20.2 - Contact with and (suspected) exposure to infections with a predominantly sexual mode of transmission AMB HCG Urine Test Today Z32.02 - Encounter for test, result negative Coding Level of Care Code Est Pt Prev Care 18-39y(21583) Diagnoses Encounter for well woman exam with routine gynecological exam Z01.419 Pelvic cramping R10.2
[2023-12-31 12:59] VITALS: BP 120/70; BMI 45.6
== END 2023-12-31 14:23 | disposition home or self-care (01) ==
LOC: HO.HWS 12:51
PROVIDERS: PCP Internal Medicine; Visit Provider Advanced Practice Midwife
DX: Z01.419 Encounter for gynecological examination (general) (routine) without abnormal findings (principal); R10.2 Pelvic and perineal pain; Z32.02 Encounter for pregnancy test, result negative
CPT/HCPCS: 99395

== ENCOUNTER 2023-12-31 13:49 | Outpatient (REF) | payer OTHER, SELFPAY ==
[2024-01-01 03:13] LABS: CT PCR NOT DETECTED (Not Detect.); NG PCR NOT DETECTED (Not Detect.)
[2024-01-01 09:00] LABS: HIV AB/AG Nonreactive (Nonreactive); HIV Num 1 0.05 S/CO (0.00-0.99)
[2024-01-01 10:01] LABS: Syphilis Screen Nonreactive (Nonreactive)
[2024-01-02 08:53] LABS: HBc Num1 0.06 S/CO (0.00-0.79); Hepatitis B Core Antibody Nonreactive (Nonreactive); ~HepC Num1 0.07 S/CO (0.00-0.79); ~Hepatitis C Antibody Nonreactive (Nonreactive)
== END 2023-12-31 13:50 | disposition home or self-care (01) ==
LOC: HO.LNP 13:49
PROVIDERS: Visit Provider Advanced Practice Midwife
DX: R10.2 Pelvic and perineal pain (principal); Z20.2 Contact with and (suspected) exposure to infections with a predominantly sexual mode of transmission
CPT/HCPCS: 86704; 86780; 86803; 87389; 87491; 87591

== ENCOUNTER 2024-01-08 15:26 | Outpatient (REF) | payer OTHER, SELFPAY ==
[2024-01-08 16:36] LABS: MANUAL DIFF FLAG NO
[2024-01-08 16:47] LABS: Basophils Absolute Auto 0.1 X10*3/uL (0.0-0.2); Basophils Percent Auto 0.5 % (0-2); Eosinophils Absolute Auto 0.2 X10*3/uL (0.0-0.4); Eosinophils Percent Auto 1.3 % (0-4); Hematocrit 39.1 % (37.0-47.0); Hemoglobin 12.4 g/dl (12.0-16.0); Imm Gran Abs Auto 0.04 X10*3/uL (0.00-0.03); Imm Gran Pct Auto 0.3 % (0.0-0.4); Lymphocytes Absolute Auto 3.1 X10*3/uL (1.2-4.9); Lymphocytes Percent Auto 26.5 % (20-40); Mean Corpuscular HGB Conc 31.7 g/dl (31.0-35.0); Mean Corpuscular Hemoglobin 27.6 pg (27.0-33.0); Mean Corpuscular Volume 87.1 fL (80.0-98.0); Mean Platelet Volume 9.3 fL (9.4-12.3); Monocytes Absolute Auto 0.5 X10*3/uL (0.1-1.2); Monocytes Percent Auto 4.1 % (2-11); Neutrophils Percent Auto 67.3 % (45-73); Platelet Count 310 X10*3/uL (160-400); Red Blood Count 4.49 X10*6/uL (4.20-5.50); White Blood Count 11.9 X10*3/uL (4.8-10.8)
[2024-01-08 17:23] LABS: Alanine Aminotransferase 22 U/L (0-31); Albumin Level 4.1 g/dL (3.5-5.0); Alkaline Phosphatase 86 U/L (39-117); Anion Gap 14 (12-20); Aspartate Amino Transferase 20 U/L (5-31); Bilirubin Total 0.3 mg/dL (0.0-1.0); Blood Urea Nitrogen 11 mg/dL (9-16); Calcium 9.8 mg/dL (8.4-10.2); Carbon Dioxide 25 mmol/L (22-29); Chloride 103 mmol/L (96-108); Cholesterol 210 mg/dL (<200); Estimated Glomerular Filt Rate > 60; Glucose Fasting 91 mg/dL (60-99); HDL Cholesterol 36 mg/dL (>40); LDL Cholesterol Calculated 150 mg/dL (<100); Potassium 3.9 mmol/L (3.3-5.1); Sodium 138 mmol/L (135-145); Total Protein 8.2 g/dL (6.5-8.0); Triglycerides 121 mg/dL (<150)
[2024-01-08 17:32] LABS: Vitamin D 25-OH Total 23.6 ng/mL (>30)
[2024-01-10 09:43] LABS: Prot Elec - Albumin 3.9 g/dL (3.8-4.8); Prot Elec - Alpha1 0.4 g/dL (0.2-0.3); Prot Elec - Beta 1 0.6 g/dL (0.4-0.6); Prot Elec - Beta 2 0.7 g/dL (0.2-0.5); Prot Elec - Gamma 1.3 g/dL (0.8-1.7); Prot Elec - Total Protein 7.8 g/dL (6.1-8.1)
== END 2024-01-08 15:27 | disposition home or self-care (01) ==
LOC: HO.LAB 15:26
PROVIDERS: PCP Internal Medicine; Visit Provider Internal Medicine
DX: Z00.00 Encounter for general adult medical examination without abnormal findings (principal); R77.8 Other specified abnormalities of plasma proteins; R59.0 Localized enlarged lymph nodes; E78.5 Hyperlipidemia, unspecified; E55.9 Vitamin D deficiency, unspecified
CPT/HCPCS: 36415; 80053; 80061; 82306; 84165; 85025; 96127

== ENCOUNTER 2024-01-08 15:26 | Outpatient (AMB) | payer OTHER, SELFPAY ==
--- NOTE | 2024-01-08 15:33 | MHC.PC.OV ---
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 Accompanied by: Self / Same As Patient Allergies vancomycin Allergy (Mild, Verified 01/08/24 15:47) Rash Medication List - Last Reconciled 01/08/24 by Genoveva Goyal MD cholecalciferol (vitamin D3) 25 mcg PO DAILY levonorgestrel (Mirena) intrauterine multivitamin 1 tab PO DAILY valacyclovir (Valtrex) 500 mg PO BID Tobacco use date assessed: 01/08/24 Dental Screening Dental Screen Date: 01/08/24 Did you have a dental visit in the last 12 months?: Yes Did you have a dental problem in the last 6 months where you did not have access to dental care?: No Was dental information given to patient?: Patient has dentist HPI HPI Comments History of Present Illness Details This is a 33-year-old female with morbid obesity that comes for her physical exam. She is morbidly obese and has done diet and exercise with no improvement. Will be referred to weight management. No chest pain or shortness on breath. Pap smear done 2022 was normal. [facility] Medical History (Updated 01/08/24 @ 15:59 by Genoveva Goyal MD) Cervical lymphadenopathy Goiter Right upper quadrant abdominal pain Physical exam Leukocytosis Morbid obesity Hypovitaminosis D Surgical History H/O arthroscopy of left knee History of wisdom tooth extraction Family History Father No problems noted. 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 1. Little interest or pleasure in doing things: not at all 2. Feeling down, depressed, or hopeless: not at all 3. Trouble falling or staying asleep, or sleeping too much: not at all 4. Feeling tired or having little energy: not at all 5. Poor appetite or overeating: not at all 6. Feeling bad about yourself - or that you are a failure or have let yourself or your family down: not at all 7. Trouble concentrating on things, such as reading the newspaper or watching television: not at all 8. Moving or speaking so slowly that other people could have noticed. Or the opposite - being so fidgety or restless that you have been moving around a lot more than usual: not at all 9. Thoughts that you would be better off or of hurting yourself in some way: not at all Total score: 0 Depression Screening Interpretation: Negative Depression Screening Done: Yes 89132 - PHQ-9 Billing: Yes Source: Developed by Drs. Marck Kang, Glenny Delgadillo, Milton Solomon and colleagues, with an educational shun from [employer]. Thrive Questionnaire Date Thrive assessed: 01/01/24 I am a: Patient What is your living situation today?: I have a steady place to live Within the past 12 months, did the food you bought not last and you didn't have the money to get more?: Never true Within the past 12 months, did you worry whether your food would run out before you got money to buy more?: Never true Do you have trouble paying for medicines?: No Do you have trouble getting transportation to medical appointments?: No Do you have trouble paying your heating and electricity bill?: No Do you have trouble taking care of your child, family member or friend?: No Do you have trouble with day-to-day activities such as bathing, preparing meals, shopping, managing finances, etc.?: No Are you currently unemployed and looking for a job?: No Are you interested in more education?: No Please select the resources that you would like help with: None Currently or been in a relationship where the following occur: No concerns reported THRIVE Score: 0 AUDIT C Alcohol Use Questionnaire (AUDIT-C) 1. How often do you have a drink containing alcohol?: Monthly or less 2. How many drinks containing alcohol do you have on a typical day when you are drinking?: 1 or 2 3. How often do you have six or more drinks on one occasion?: Never Total Score: 1 Score Reviewed/Action Taken: No SAM-7 AMB Questionnaire SAM-7 Date SAM - 7 assessed: 01/08/24 Feeling nervous, anxious, or on edge: 0 = Not at all Not being able to stop or control worryin = Not at all Worrying too much about different things: 0 = Not at all Trouble relaxin = Not at all Being so restless that it is hard to sit still: 0 = Not at all Becoming easily annoyed or irritable: 1 = Several days Feeling afraid as if something awful might happen: 0 = Not at all Total SAM-7 score (0-4 normal; 5-9 mild; 10-14 moderate; 15-21 severe): 1 Source: Developed by Drs. Marck Kang, Glenny Delgadillo, Milton Solomon and colleagues, with an educational shun from [employer]. SAM-7 Assessment Billing SAM-7 Assessment Tool: SAM-7 Assessment 90365 Review of Systems Const All systems reviewed & are unremarkable except as noted in HPI and below Card Denies chest pain at rest, Denies chest pain with activity, Denies edema, Denies irregular heart rhythm, Denies claudication, Denies dyspnea, Denies dyspnea on exertion, Denies orthopnea, Denies paroxysmal nocturnal dyspnea and Denies slow heart rate Resp Denies cough, Denies dyspnea and Denies dyspnea on exertion GI Denies abdominal pain, Denies change in bowel habits, Denies excessive flatus, Denies nausea and Denies vomiting Physical exam (Primary Care) Vital Signs: Last Vital Signs BP 130/82 01/08/24 15:34 BMI result Body Mass Index 44.9 BMI Assessment/Plan discussion: High BMI High, discussed plan: lifestyle, weight reduction, dietary and physical activity Tobacco/Smoking Status: Tobacco use Status Tobacco use date assessed 01/08/24 01/08/24 15:42 Patient Tobacco Use Status Never used Tobacco 01/08/24 15:51 e-Cigarette/Vaping Use Never Used 01/08/24 15:51 PHQ-9: PHQ-9 Score PHQ-9: Total score 0 01/08/24 15:53 Depression Screening Interpretation: Negative Thrive Assessment: Date of Thrive Assessment Date Thrive assessed 01/01/24 01/08/24 15:36 Currently or been in a relationship where the following occur: No concerns reported HENMT Head: Yes normal to inspection, Yes normocephalic and Yes atraumatic Ears: external ears normal Eyes General: appearance normal, both eyes and all related structures Eyelids: Yes eyelids normal Conjunctivae: conjunctivae normal Neck Neck: Yes normal visual inspection and Yes supple Resp Effort & Inspection: normal respiratory effort Auscultation: clear to auscultation bilaterally Cardio Jugular venous distension: no JVD Rate: regular rate Rhythm: regular rhythm Heart sounds: S1 normal heart sound present and S2 normal heart sound present GI Inspection: Yes normal to inspection Palpation (GI): Soft to palpation and nontender Auscultation: normal bowel sounds Skin General skin exam: no rashes or lesions noted Neuro General: no focal motor deficits Extrem General: Yes full ROM Psych Appearance: grossly normal Office Procedures Flu Questionnaire Does the patient have a severe egg allergy?: No Immunizations Fluarix Triv [id number] (PF) 45 mcg (15 mcg x 3)/0.5 mL IM syringe Performing Provider: Genoveva Goyal MD [facility] Documented (not given) by: LUIS Leblanc on 01/08/24 15:37 Reason Not Given: Received Previously Coding Level of Care Code Est Pt Prev Care 18-39y(89929) Diagnoses Physical exam Z00.00 Morbid obesity due to excess calories E66.01 Additional Codes SAM-7 Assessment Billing - SAM-7 Assessment Tool: SAM-7 Assessment 06477 ([id number]) PHQ-9 - 40516 - PHQ-9 Billing: Yes ([id number]) Time Spent (min) 31 Assessment & Plan Assessment & Plan (1) Physical exam: Code(s): Z00.00 - Encounter for general adult medical examination without abnormal findings Category: Medical Plan: Repeat in a year. (2) Morbid obesity due to excess calories: Code(s): E66.01 - Morbid (severe) obesity due to excess calories Category: Medical Plan: Referred to weight management. BMI goal is less than 30. Orders: Orders Vitamin D 25-OH Total Today E55.9 - Vitamin D deficiency, unspecified Lipid Panel Today E78.5 - Hyperlipidemia, unspecified, Z00.00 - Encounter for general adult medical examination without abnormal findings Protein Electrophoresis, Serum Today R77.8 - Other specified abnormalities of plasma proteins Complete Blood Count Auto Diff Today R59.0 - Localized enlarged lymph nodes Influenza [id number] Immunization Today Z23 - Encounter for immunization Comprehensive [place]. Panel Fast Today Z00.00 - Encounter for general adult medical examination without abnormal findings Referrals Medical Weight Management Referral E66.01 - Morbid (severe) obesity due to excess calories
[2024-01-08 15:34] VITALS: BP 130/82; BMI 44.9
== END 2024-01-08 15:59 | disposition home or self-care (01) ==
LOC: HO.HMCH 15:27
PROVIDERS: PCP Internal Medicine; Visit Provider Internal Medicine
DX: Z00.00 Encounter for general adult medical examination without abnormal findings (principal); E66.01 Morbid (severe) obesity due to excess calories; Z68.41 Body mass index [BMI] 40.0-44.9, adult

== ENCOUNTER 2024-01-14 10:55 | Outpatient (REF) | payer OTHER, SELFPAY | END 2024-01-14 10:56 | disposition home or self-care (01) | LOC: HO.US 10:55 | PROVIDERS: PCP Internal Medicine; Visit Provider Advanced Practice Midwife | DX: R10.2 Pelvic and perineal pain (principal) | CPT/HCPCS: 76830; 76856 ==

== ENCOUNTER 2024-01-29 08:16 | Outpatient (REF) | payer OTHER, SELFPAY ==
[2024-01-29] MEDS: iohexoL 350 MG/ML 100 ML INFUS..BTL 60 ML IV (09:15)
== END 2024-01-29 08:17 | disposition home or self-care (01) ==
LOC: HO.CT 08:16
PROVIDERS: PCP Internal Medicine; Visit Provider Surgery
DX: R59.0 Localized enlarged lymph nodes (principal)
CPT/HCPCS: 70491; Q9967

== ENCOUNTER → 2024-01-29 08:18 | Outpatient (BNV) | payer OTHER, SELFPAY | PROVIDERS: PCP Internal Medicine; Visit Provider Radiology Diagnostic Radiology | DX: R59.0 Localized enlarged lymph nodes (principal) | CPT/HCPCS: 70491 ==

== ENCOUNTER → 2024-03-06 08:48 | Outpatient (BNV) | payer BC, SELFPAY | PROVIDERS: PCP Internal Medicine; Referring Provider Internal Medicine; Visit Provider Internal Medicine | DX: D72.829 Elevated white blood cell count, unspecified (principal) | CPT/HCPCS: 99204 ==

== ENCOUNTER 2024-03-26 08:39 | Outpatient (AMB) | payer BC, SELFPAY ==
--- NOTE | 2024-03-26 08:40 | MHC.OFFVIS ---
Vital Signs 03/26/24 08:41 Height 5 ft 10 in Weight 327 lb 2.656 oz BMI 46.9 Intake Visit Reasons: s/p CT soft tissue neck 01/29/24 Intake Note: This patient presents for follow-up CT soft tissue neck (01/29/24). Pt c/o; no concerns. Network Support Required: No Accompanied by: Self / Same As Patient Allergies vancomycin Allergy (Mild, Verified 03/26/24 08:45) Rash Medication List - Last Reconciled 03/26/24 by John Fortune MD cholecalciferol (vitamin D3) 25 mcg PO DAILY levonorgestrel (Mirena) 20 mcg intrauterine DAILY multivitamin 1 tab PO DAILY valacyclovir (Valtrex) 500 mg PO BID HPI HPI s/p CT soft tissue neck 01/29/24: Details: She is here for follow-up for her cervical lymphadenopathy. This was actually an incidental finding last year on an ultrasound done for her thyroid. I had sent her for a CT scan of the neck last January,. Unfortunately, this had not been read by the radiologist until a few weeks ago She denies any new complaints. She denies not feel any of the lymph nodes on her neck She denies any episodes of tonsillitis or sore throat. [facility] Medical History Cervical lymphadenopathy Goiter Right upper quadrant abdominal pain Physical exam Leukocytosis Morbid obesity Hypovitaminosis D Surgical History H/O arthroscopy of left knee History of wisdom tooth extraction Family History Father No problems noted. 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[employer] Current occupational exposures/hazards: No Sexual orientation: Straight/Heterosexual Gender identity: Female Cognitive needs: No Hearing needs: No Vision needs: No Female Reproductive History Menstrual Age of Menarche: 15 Review of Systems Const Denies chills and Denies fever(s) Card Denies chest pain, Denies dyspnea and Denies dyspnea on exertion Resp Denies cough, Denies dyspnea and Denies dyspnea on exertion GI Denies hematochezia and Denies change in bowel habits Denies hematuria Musc Denies back pain and Denies limited range of motion Neuro Denies focal weakness and Denies convulsions Psych Denies depression and Denies mood swings Physical Exam Vital Signs: BMI result Body Mass Index 46.9 Const Other: Obese General: comfortable and no acute distress Orientation/consciousness: patient oriented x3 HEENT Other: She does have enlarged tonsils; there were no oral lesions or dental caries Neck Other: I am unable to feel any enlarged lymph node. The thyroid is not enlarged Neck: Yes no lymphadenopathy Resp Effort & Inspection: normal respiratory effort Cardio Rate: regular rate Rhythm: regular rhythm Neuro General: patient oriented x3 Assessment & Plan Assessment & Plan (1) Cervical lymphadenopathy: Code(s): R59.0 - Localized enlarged lymph nodes Category: Medical Plan: I have reviewed her CAT scan and this does mentioned bilateral enlarged lymph nodes. These are nonpalpable on examination. She does have findings of marked enlargement of the palatine tonsils, left more than the right. The thyroid gland is not enlarged. I explained to her that it may be best for her to follow up with the ENT doctor down the line for further evaluation especially in view of her markedly enlarged palatine tonsils. She says she has known this for a long time. I am uncertain as to the clinical significance of this enlarged lymph nodes seen on imaging studies. She understands the above. Coding Level of Care Code Est Pt Level 2 (58728) Diagnoses Cervical lymphadenopathy R59.0
[2024-03-26 08:41] VITALS: BMI 46.9
== END 2024-03-26 08:56 | disposition home or self-care (01) ==
PROVIDERS: PCP Internal Medicine; Visit Provider Surgery
DX: R59.0 Localized enlarged lymph nodes (principal)
CPT/HCPCS: 99212

== ENCOUNTER → 2024-03-26 08:39 | Outpatient (BNVA) | payer BC, SELFPAY | PROVIDERS: PCP Internal Medicine; Visit Provider Surgery ==

== ENCOUNTER 2024-04-07 15:34 | Outpatient (AMB) | payer BC, SELFPAY ==
--- NOTE | 2024-04-07 15:41 | A.OFFVIS_ITS ---
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 She reports 1 episode in February with the bleeding was a little bit heavier than her normal. Same monogamous partner. She denies any vaginal odors or discharge. Previous exam all cultures were negative. Overall she really likes the IUD and would like to continue using it. IUD inserted April of 2020. [facility] Medical History (Updated 04/07/24 @ 16:07 by Alayna Doran CNM) IUD (intrauterine device) in place Cervical lymphadenopathy Goiter Right upper quadrant abdominal pain Physical exam Leukocytosis Morbid obesity Hypovitaminosis D Surgical History H/O arthroscopy of left knee History of wisdom tooth extraction Family History Father No problems noted. 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[employer] Current occupational exposures/hazards: No Sexual orientation: Straight/Heterosexual Gender identity: Female Cognitive needs: No Hearing needs: No Vision needs: No Female Reproductive History Menstrual Age of Menarche: 15 control method: progestin IUCD (Mirena 04/2020) Review of Systems Const All systems reviewed & are unremarkable except as noted in HPI and below Endo Reports no additional complaints Physical Exam Const General: cooperative, healthy appearing and no acute distress Psych Appearance: well kempt Attitude: cooperative Thought process: Normal thought process present Results Reviewed Results Reviewed: [address] [address] Ultrasound Report Signed Patient: Khushi Vega MR#: [id number] : 1990 Acct:[id number] Age/Sex: 33 / F ADM Date: 01/14/24 Loc: HO.US Attending Dr: Alayna Doran CNM Ordering Physician: Alayna Doran CNM Date of Service: 01/14/24 Procedure(s): US pelvic and transvaginal Accession Number(s): [id number] cc: Alayna Doran CNM; Genoveva Souza MD~ EXAMINATION: US PELVIS CLINICAL INFORMATION: Pelvic and perineal pain COMPARISON: None available. TECHNIQUE: Ultrasound of the pelvis is performed using both transabdominal and transvaginal transducers along with Doppler. Transvaginal imaging is performed due to inadequate visualization transabdominally. FINDINGS: Uterus: The uterus is anteverted and measures 9.2 x 4.2 x 5.6 cm. The double wall endometrial thickness is 5 mm. An IUD is present in good position in the endometrial canal. The uterus is smooth in contour and has normal myometrial echogenicity. No visible fibroid. Adnexa: Both ovaries are visualized. There is normal color flow to the adnexa. There is no ovarian torsion. There is no pelvic ascites or fluid collection. Right ovary measures 3.3 x 2.1 x 2.2 cm for a volume of 8 cc and contains a normal 1.8 cm cyst Left ovary measures 2.6 x 1.6 x 2.1 cm for a volume of 4.6 cc and appears unremarkable US/US pelvic and transvaginal IMPRESSION: An IUD is present in good position. No significant abnormality is seen. Electronically signed by: Korey Green MD 03/13/2024 04:32 PM [facility] Dictated By: Korey Green MD Signed By: <Electronically signed by Korey Green MD in OV> 03/13/24 1632 DD/ 1112 TD/TT: 01/14/24 1132 Product Developer: KARL Assessment & Plan Assessment & Plan (1) Encounter to discuss test results: Code(s): Z71.2 - Person consulting for explanation of examination or test findings Plan: Discussed: Ultrasound findings IUD in place in good position in the endometrial canal. (2) IUD surveillance: Code(s): Z30.431 - Encounter for routine checking of intrauterine contraceptive device Plan: IUD in place per pelvic ultrasound. (3) Irregular bleeding: Code(s): N92.6 - Irregular menstruation, unspecified Plan: Counseled regarding irregular bleeding patterns with the Mirena IUD. Discuss options for treatment including NSAID protocol she opts to try this, Naproxen sent in for a 5 day protocol. She denies any contraindications to NSAID use. Patient advised to reach out in the portal and let me know how she is doing. (4) Pelvic cramping: Code(s): R10.2 - Pelvic and perineal pain Plan As noted for the NSAID protocol. Medications: New naproxen (Naprosyn) Take with food. No other NSAIDs to be used at the same time. 500 mg PO BID 5 days 10 tabs 0RF pain Coding Level of Care Code Est Pt Level 3 (30382) Diagnoses Encounter to discuss test results Z71.2 IUD surveillance Z30.431 Irregular bleeding N92.6 Pelvic cramping R10.2
== END 2024-04-07 15:59 | disposition home or self-care (01) ==
LOC: HO.HWS 15:34
PROVIDERS: PCP Internal Medicine; Visit Provider Advanced Practice Midwife
DX: Z71.2 Person consulting for explanation of examination or test findings (principal); Z30.431 Encounter for routine checking of intrauterine contraceptive device; N92.6 Irregular menstruation, unspecified; R10.2 Pelvic and perineal pain
CPT/HCPCS: 99213

== ENCOUNTER → 2024-04-07 15:34 | Outpatient (BNVA) | payer BC, SELFPAY | PROVIDERS: PCP Internal Medicine; Visit Provider Advanced Practice Midwife ==

== ENCOUNTER 2025-02-09 13:16 | Outpatient (REF) | payer OTHER, SELFPAY ==
--- NOTE | ~2025-02-09 | MM_ITS ---
EXAMINATION(S): 1. MM DIAGNOSTIC DIGITAL BREAST TOMOSYNTHESIS, LEFT 2. TARGETED ULTRASOUND OF THE LEFT BREAST CLINICAL INFORMATION: This is a one year follow-up of left breast finding from November 2023. This was first described on the mammogram in October 2022. No ultrasound correlate was identified in October 2022. COMPARISON: Bilateral mammogram on November 12, 2023. Left diagnostic mammogram on May 09, 2023. Bilateral mammogram and bilateral ultrasound on October 14, 2022. TECHNIQUE: Digital breast tomosynthesis is performed in both the mediolateral oblique and craniocaudal views along with computer-aided detection (CAD). Synthesized 2D images are generated from the tomosynthesis. FINDINGS: BREAST COMPOSITION: There are scattered areas of fibroglandular density. LEFT BREAST: The oval mass that has been followed up measures 1.0 x 0.7 cm and is located in the upper slightly outer quadrant at about 7-8 cm from the nipple (MLO 48/104, CC 44/88). Re-measurements on the prior mammogram in October 2022 are 0.7 x 0.4 cm. No new masses, suspicious calcifications or other abnormalities are seen. Targeted ultrasound of the left breast was reattempted at the location of the mammographic finding. The survey extending from 11:00 to 3:00 axis was unable to identify a definite sonographic correlate. No suspicious sonographic findings seen during the survey. MM/MM tomosynthesis diagnostic LT IMPRESSION: LEFT BREAST: Minimal interval increase in size of the oval mass in the upper outer quadrant middle depth without sonographic correlate. Probably benign. A 6-month follow-up left mammogram is recommended. ASSESSMENT: BI-RADS: Category 3: Probably benign RECOMMENDATION: 6 Month F/U Results were provided to the patient at time of visit by the technologist. Electronically signed by: Michael Hilario MD 02/09/2025 03:27 PM [facility]
--- OUTSIDE RECORDS SUMMARY | 2025-02-09 18:01 | XMS_ITS | Encounter Summary ---
Author Organization [facility] Address [address] [place] [address] Care Team Providers Care Patient Access Director Name Role Phone Unavailable Primary Care Provider Unavailabl e Encounter Details Date Type Department Care Team (Late st Contact Info) Description 12/13/2021 Lab Requisition [facility] Pathology & Laboratory Medicine - [facility] [address] [place] [address] Outr Resulting Lab, Provider Social History Tobacco Use Types Packs/Day Years Used Date Smoking Tobacco: Never Assessed Comments Unknown Sex and Gender Information Value Date Recorded Sex Assigned at Not on file Legal Sex Female 13:10 EDT Gender Identity Not on file Sexual Orientation Not on file documented as of this encounter Plan of Treatment Not on file documented as of this encounter Procedures Procedure Name Priority Date/Time Associated Diagnosis Comments VARICELLA IGG ANTIBODY Routine 12/13/2021 11:49 EDT documented in this encounter Results * VARICELLA IGG ANTIBODY (12/13/2021 11:49 EDT) Varicella IgG Ab Positive See Note 12/14/2021 10:03 EDT [facility] Comment:Presence of detectab le Varicella Zoster virus IgG antibodies. Blood VENOUS BLOOD / Unknown 12/13/2021 11:49 EDT 12/13/2021 21:07 EDT us Provider Outr Resulting Lab IMMUNOLOGY AND SEROL OGY ORDERABLES Final Result [facility] [address] [place] [address] documented in this encounter Visit Diagnoses Not on filedocumented in this encounter
--- OUTSIDE RECORDS SUMMARY | 2025-02-09 18:01 | XMS_ITS | Clinical Summary ---
Author Organization [facility] Address [address] [place] [address] Care Team Providers Care Senior Process Control Tech Name Role Phone Unavailable Primary Care Provider Unavailabl e Social History Tobacco Use Types Packs/Day Years Used Date Smoking Tobacco: Never Assessed Comments Unknown Sex and Gender Information Value Date Recorded Sex Assigned at Not on file Legal Sex Female 13:10 EDT Gender Identity Not on file Sexual Orientation Not on file Plan of Treatment Health Maintenance Due Date Last Done Comments Hepatitis C Screen 1990 Hepatitis B Vaccine (1 of 3 - 19+ 3-dose series) 05/19 COVID-19 Vaccine ( season) 2024
--- OUTSIDE RECORDS SUMMARY | 2025-02-09 18:01 | XMS_ITS | Clinical Summary ---
Author Organization [facility] Address [address] [address] Phone Care Team Providers Care Social Service Liaison Name Role Phone Pcp, Unknown Primary Care Provider Unavailabl e Immunizations Immunization Administration Dates Next Due COVID-19 (Pre-12/24) Pfizer Vaccine, mRNA, PF 11/06/2020,03/13/2020,02/18/2020 Hepatitis B Adult 02/19/2014, 4,1992,1992 Influenza Quadrivalent Prese rvative Free IM 12/12/2021 Influenza, Unspecified Formulation 12/30/2022, MMR 05/25/1997,08/14/1993 Tdap 05/14/2018 Social History Tobacco Use Types Packs/Day Years Used Date Smoking Tobacco: Never Assessed Education Answer Date Recorded Are you interested in more education? Not on patricia e 07/01/2022 Are you concerned about learning? Not on file 07/01/2022 No 07/01/2022 No 07/01/2022 Digital Access Answer Date Recorded No 07/29/2022 No 07/29/2022 No 07/29/2022 Reliable internet access at home? Not on file 07/29/2022 Device with a working camera? Not on file Comments Unknown Sex and Gender Information Value Date Recorded Sex Assigned at Not on file Legal Sex Female 5:10 PM EST Gender Identity Not on file Sexual Orientation Not on file Plan of Treatment Health Maintenance Due Date Last Done Comments DEPRESSION SCREENING 2004 SMOKING Hx and SMOKELESS TOBACCO SCREENING 2005 HEPATITIS C SCREENING 2010 HIV ONE-TIME SCREENING (18-65 YEARS) 2010 PAP SMEAR 2013 INFLUENZA VACCINE (#1) 2024 , 12/12/2021, 12/22/2020, Additional history exists COVID-19 VACCINE (2024- season) 2024 11/06/2020, 03/13/2020, 02/18/2020 Adult Td,Tdap Booster 05/14/2028 05/14/2018 , 11/25/2007, 06/29/2002 HIB VACCINES Completed 08/14/1993, 11/03, 1992, Additional history exists MENINGOCOCCAL VACCINES (ACWY) Completed 10/24/2010, 11/27/2006 HEPATITIS A VACCINES Aged Out 01/12/2014 No long er eligible based on patient's age to complete this topic MENINGOCOCCAL VACCINES (B) Aged Out N o longer eligible based on patient's age to complete this topic PNEUMOCOCCAL VACCINES (0-49 years) Aged Out No longer eligible based on patient's age to complete this topic Medical Devices Not on file Care Teams Social Service Liaison Relationship Specialty Start Date End Date Pcp, Unknown PCP - General 04/25/21 Additional Source Comments The information contained in this document represents components of the legal health record. It is not the complete legal health record.[facility]
== END 2025-02-09 13:17 | disposition home or self-care (01) ==
LOC: HO.MAMMO 13:16
PROVIDERS: PCP Internal Medicine; Visit Provider Internal Medicine
DX: R59.0 Localized enlarged lymph nodes (principal)
CPT/HCPCS: 76642; 77061; 77065

== ENCOUNTER → 2025-02-09 13:30 | Outpatient (BNV) | payer OTHER, SELFPAY | PROVIDERS: PCP Internal Medicine; Visit Provider Radiology Body Imaging | DX: N63.21 Unspecified lump in the left breast, upper outer quadrant (principal) | CPT/HCPCS: 76642; 77061; 77065 ==